=== PATIENT | male | born 1990 | race Caucasian/White ===

== ENCOUNTER 2018-08-10 22:01 | Inpatient (IN) ==
[2018-08-10 22:45] LABS: Baso # (Auto) 0.1 th/mm3 (0.0-0.2); Baso % (Auto) 0.7 % (0.0-2.0); Eos # (Auto) 0.3 th/mm3 (0.0-0.4); Eos % (Auto) 2.3 % (0.0-4.0); Hematocrit 38.9 % (39.0-51.0); Hemoglobin 13.9 gm/dL (13.0-17.0); Lymph # (Auto) 4.1 th/mm3 (1.0-4.8); Lymph % (Auto) 35.3 % (9.0-44.0); Mean Corpuscular HGB Conc 35.7 % (32.0-36.0); Mean Corpuscular Hemoglobin 31.7 pg (27.0-34.0); Mean Corpuscular Volume 88.9 fL (80.0-100.0); Mean Platelet Volume 8.7 fL (7.0-11.0); Mono % (Auto) 8.6 % (0.0-8.0); Neut # (Auto) 6.2 th/mm3 (1.8-7.7); Neut % (Auto) 53.1 % (16.0-70.0); Platelet Count 279 th/mm3 (150-450); Red Blood Count 4.38 mil/mm3 (4.50-5.90); White Blood Count 11.7 th/mm3 (4.0-11.0)
[2018-08-10 23:06] LABS: Alanine Aminotransferase 23 U/L (12-78); Albumin 4.3 g/dL (3.4-5.0); Anion Gap 9 meq/L (5-15); Aspartate Aminotransferase 14 U/L (15-37); Blood Urea Nitrogen 16 mg/dL (7-18); Calcium 9.4 mg/dL (8.5-10.1); Carbon Dioxide 23.2 meq/L (21.0-32.0); Chloride 110 meq/L (98-107); Glomerular Filtration Rate Greater Than 89 mL/min (>89); Glucose,Random 82 mg/dL (74-106); Potassium 3.5 meq/L (3.5-5.1); Sodium 142 meq/L (136-145)
[2018-08-10 23:09] LABS: Alkaline Phosphatase 91 U/L (45-117); Total Protein 7.7 g/dL (6.4-8.2)
[2018-08-10 23:14] LABS: Alcohol 5 mg/dL (0-5)
[2018-08-11] MEDS ORDERED: Gabapentin 100 MG Capsule PO ONE (03:39)
[2018-08-11] MEDS ORDERED: Gabapentin 400 MG Capsule PO ONE (03:45)
--- NOTE | 2018-08-11 03:45 | ED ---
HPI General Chief Complaint: Psychiatric Symptoms Stated Complaint: Pysch Eval/VCSO Time Seen by Provider: 08/11/18 03:39 Source: patient Mode of arrival: ambulatory Limitations: no limitations History of Present Illness HPI Narrative: 28-year-old white male presents emergency department under Michelle act by PD. Patient allegedly had gotten aggressive at home. Patient has a history of Fahrs syndrome. He is becoming more aggressive and paranoid at home. He presents for evaluation. He denies any recent illness. He denies any suicidal or homicidal ideation. No toxic ingestions. He does drink alcohol on occasion is smoke marijuana. He denies tobacco. Related Data Home Medications Medication Instructions Recorded Confirmed escitalopram oxalate [Lexapro] 10 mg PO BID 08/10/18 08/11/18 gabapentin 800 mg PO HS 08/10/18 08/11/18 montelukast [Singulair] 10 mg PO DAILY 08/10/18 08/11/18 Allergies Allergy/AdvReac Type Severity Reaction Status Date / Time adhesive tape Allergy Rash Verified 08/10/18 22:10 Sulfa (Sulfonamide Allergy Hives Verified 08/10/18 22:10 Antibiotics) Review of Systems ROS: all other systems reviewed are negative [facility] Medical History Medical History Anxiety (Acute) Fahr's disease (Acute) Social History Social History Substance History: Active Abuse Smoking Status: Never smoker How Often Do You Have a Drink Containing Alcohol: Never Recent Travel in [facility] within the Last 8 Weeks: No Recent Out of Country Travel within the Last 8 Weeks: No Substance Abuse Detail Marijuana: Substance Use Status: Active Immunization History Tetanus Immunization: <5 Years Exam Narrative Exam Narrative: GENERAL: Well-nourished, well-developed patient. SKIN: Warm and dry. HEAD: Normocephalic and atraumatic. EYES: No scleral icterus. No injection or drainage. ENT: No nasal drainage noted. Mucous membranes pink. Airway patent. NECK: Supple, trachea midline. Moves head freely without obvious discomfort. CARDIOVASCULAR: Regular rate and rhythm without murmurs, gallops, or rubs. RESPIRATORY: Breath sounds equal bilaterally. No accessory muscle use. GASTROINTESTINAL: Abdomen soft, non-tender, nondistended. EXTREMITIES: No cyanosis or edema. BACK: Nontender without obvious deformity. No CVA tenderness. NEURO: Patient is alert and oriented. no sensorimotor deficits. Nonfocal. Normal speech. PSYCH: No delusions. No auditory or visual hallucinations. Course Initial Documented Vital Signs Temperature 98 F 08/10/18 22:13 Pulse Rate 71 08/10/18 22:13 Respiratory Rate 16 08/10/18 22:13 Blood Pressure 156/75 H 08/10/18 22:13 Pulse Oximetry 100 08/10/18 22:13 Last Documented Vital Signs Temperature 98 F 08/10/18 22:13 Pulse Rate 71 08/10/18 22:13 Respiratory Rate 16 08/10/18 22:13 Blood Pressure 156/75 H 08/10/18 22:13 Pulse Oximetry 100 08/10/18 22:13 Medical Decision Making MDM Narrative Medical decision making narrative: Routine laboratory testing for medical clearance. Patient is given his gabapentin 800 mg at night and additional 50 mg of Benadryl p.o. Medical Screen Exam Complete: Yes Emergency Medical Condition: Yes Differential Diagnosis Differential Diagnosis: MDM: High Differential diagnoses: Schizophrenia, schizoaffective disorder, bipolar, anxiety, depression, adjustment reaction, mood disorder NOS, ODD, depressive disorder NOS, dementia, dementia with agitation, psychosis NOS, substance induced mood disorder, DMDD, Asperger syndrome, infection,electrolyte abnormality, malingering. Mental health screening discussed with the patient. Psychiatric screen ordered. Lab Data Result diagrams: 08/10/18 22:12 08/10/18 22:12 Lab Results 08/10/18 08/10/18 08/10/18 Range/Units 00:00 22:12 22:12 WBC 11.7 H (4.0-11.0) th/mm3 RBC 4.38 L (4.50-5.90) mil/mm3 Hgb 13.9 (13.0-17.0) gm/dL Hct 38.9 L (39.0-51.0) % MCV 88.9 (80.0-100.0) fL MCH 31.7 (27.0-34.0) pg MCHC 35.7 (32.0-36.0) % RDW 13.0 (11.6-17.2) % Plt Count 279 (150-450) th/mm3 MPV 8.7 (7.0-11.0) fL Neut % (Auto) 53.1 (16.0-70.0) % Lymph % (Auto) 35.3 (9.0-44.0) % [place] % (Auto) 8.6 H (0.0-8.0) % Eos % (Auto) 2.3 (0.0-4.0) % Baso % (Auto) 0.7 (0.0-2.0) % Neut # (Auto) 6.2 (1.8-7.7) th/mm3 Lymph # (Auto) 4.1 (1.0-4.8) th/mm3 [place] # (Auto) 1.0 H (0.0-0.9) th/mm3 Eos # (Auto) 0.3 (0.0-0.4) th/mm3 Baso # (Auto) 0.1 (0.0-0.2) th/mm3 WBC Differential . Differential Comment Auto diff final Sodium 142 (136-145) meq/L Potassium 3.5 (3.5-5.1) meq/L Chloride 110 H (98-107) meq/L Carbon Dioxide 23.2 (21.0-32.0) meq/L Anion Gap 9 (5-15) meq/L BUN 16 (7-18) mg/dL Creatinine 0.96 (0.60-1.30) mg/dL Estimated GFR Greater than 89 (>89) mL/min Random Glucose 82 (74-106) mg/dL Calcium 9.4 (8.5-10.1) mg/dL Total Bilirubin 0.3 (0.2-1.0) mg/dL AST 14 L (15-37) U/L ALT 23 (12-78) U/L Alkaline Phosphatase 91 (45-117) U/L Total Protein 7.7 (6.4-8.2) g/dL Albumin 4.3 (3.4-5.0) g/dL Urine Opiates Screen Neg (Neg) Ur Barbiturates Screen Neg (Neg) Ur Amphetamines Screen Neg (Neg) U Benzodiazepines Scrn Neg (Neg) Urine Cocaine Screen Neg (Neg) U Cannabinoids Screen Pos H (Neg) Serum Alcohol 5 (0-5) mg/dL Discharge Plan Discharge Disposition Patient Disposition: 30 Still Patient Discharge Condition Condition: Stable Physicians Team ED Provider: Mirna Ed,[facility] Midlevel Provider: Wicho Nye Primary Care Provider: Primary Care Michelle Marques Rxs /Orders / Referrals /Forms Prescriptions: No Action gabapentin 300 mg Capsule 800 mg PO HS RF: 0 montelukast [Singulair] 10 mg Tablet 10 mg PO DAILY RF: 0 escitalopram oxalate [Lexapro] 20 mg Tablet 10 mg PO BID RF: 0 Status ED Status: With LEONOR
[2018-08-11] MEDS ORDERED: Naproxen 500 MG Tablet PO ONE (11:42)
[2018-08-11] MEDS ORDERED: Aluminum/Magnesium/Simethacone Susp 30 ML UDC PO PRN (14:14)
--- NOTE | 2018-08-11 14:59 | P.CONPSY ---
Provisional Diagnosis Admission Date: August 10, 2018 22:01 [place] I.: Psychosis NOS Cannabis Abuse [place] III.: Fahr's Disease History of Present Illness Service: ED Consult date: 08/11/18 Reason for Consult: Miguel Angel Willams Primary Care Provider: No Primary Care Physician Chief Complaint: "I have episodes of rage" History of Present Illness: The patient is a 28 yo male who was brought to the [facility] ED under BA by ZOFIA, who were reportedly called to the home by the [facility] crisis [facility] because of worsening paranoia and aggressive behavior. According to the patient, he was first diagnosed with Fahr's disease ~ 2 years ago and he believes it is the cause of his "rage episodes" that have worsened over the past year, as well as worsening anxiety and paranoia over the past 2 months. He denies having insight into why he had his most recent rage episode, but he does c/o "a lot of stress and I don' t get enough time with my [facility] counselor to talk about it." The patient discussed stressors from being diagnosed with a progressive disease "that most doctors don't even recognize" and losing his independence due to the effects on his cognitive function. He also admits to severe grief from losing his girlfriend suddenly to cardiac arrest in 2017. He reports that he has been living with his parents since his GF and he sometimes gets irritated with them but overall is appreciative of their support and he deferred any discussion about medication changes to his mother, Tomasa Pino . Ms. Pino was contacted for collateral information, and she corroborates his history. She further explained that the paranoia and aggression has been worsening over the past 2 months and she is concerned with his safety and the families safety if he is returned home today without further psychiatric stabilization. She reports that his outpatient [facility] psychiatrist, Dr. Au, had previously suggested Seroquel as an adjunctive treatment of his depression, anxiety and paranoia but they had chosen an increase of the Lexapro first, out of concern for EPS, but she is now supportive of a trial. Risks, benefits, side-effects and alternatives were discussed with the patient in the ED and he agreed to start of low dose Seroquel. Past psychiatric history: Past Diagnoses: Anxiety, Depression Hospitalizations: None Suicidal behavior: The patient denies any past suicide attempts or behaviors and this was corroborated by his mother. Past psychotropic medication trials: Lexapro and gabapentin are the first psychotropics that the patient has been tried on. Outpatient MH treatment: Patient is followed by the [place] outpatient clinic in [facility], Dr. Cristobal Au is his psychiatrist. Substance Use Treatment: None reported Abuse/assault history: None reported Family psychiatric history: Patient reports that both of his parents are recovering alcoholics who have maintained a 30+ year history of sobriety. He denies any history of suicides in his family. Psychosocial history: Patient was born and raised in the [place]. He graduated high school on time from the [employer]. He attended 2 years of college but did not earn a degree before joining the [employer] in 2013. The patient reports that he is medically and placed on temporary senior care status from the [employer] in 2017 due to the diagnosis of Fahrs disease. Patient reports recent grief and loss from losing his girlfriend to a sudden heart attack in 2017. She denies any legal history. 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 Patient currently lives with his parents in [place]. Review of Systems Constitutional: Reports anorexia, Reports weight loss Eyes: Denies change in vision, Denies double vision Ears, Nose, Mouth, and Throat: Reports nasal congestion Cardiovascular: Reports fast heart rate, Denies chest pain Comments: patient was treated in past with ablation Respiratory: Denies chest congestion, Denies shortness of breath Gastrointestinal: Denies abdominal pain, Denies change in bowel habits Musculoskeletal: Denies body aches Neurologic: Reports memory loss, Reports restless legs, Reports tremor(s) Psychiatric: Reports anxiety, Reports change in appetite, Reports depression, Reports difficulty concentrating, Reports irritability, Reports memory loss, Reports mood swings, Reports paranoia [facility] - History History Provided By: Patient, Family Member - Medical History Medical History: Medical History (Last Reviewed 08/11/18 @ 03:44 by JESSENIA Sal) Anxiety Fahr's disease - Tobacco History Smoking Status: Never smoker - Alcohol History How Often Do You Have a Drink Containing Alcohol: Monthly or less - Substance Use History Substance History: Active Abuse - Substance Use Type Marijuana Status: Early Remission Route Used: Inhalation Frequency: patient used daily up until 2 months ago when he quit due to paranoia Last Used: 5 days ago Reason for Use: Calm Down - Travel History Recent Travel in the [place] Within the Last 8 Weeks: No Recent Travel Out of the Country Within the Last 8 Weeks: No - Immunization History Tetanus Immunization: <5 Years Medications and Allergies Active Medications: Active Medications Acetaminophen (Tylenol) 650 mg PO Q4H PRN PRN Reason: Pain 1-5 or Temp >101F Al Hydrox/Mg Hydrox/Simethicone (Mag-Al Plus Susp Liq) 30 ml PO Q6H PRN PRN Reason: DYSPEPSIA Al Hydroxide/Mg Hydroxide (Milk Of Magnesia Liq) 30 ml PO Q12H PRN PRN Reason: Mild Constipation Escitalopram Oxalate (Lexapro) 10 mg PO BID SHIMA Fluticasone Propionate (Flonase Nasal [place]) 2 spray EACH NARE DAILY SHIMA Gabapentin (Neurontin) 800 mg PO HS SHIMA Hydroxyzine HCl (Atarax) 50 mg PO Q6H PRN PRN Reason: ANXIETY AND/OR INSOMNIA Lactulose (Lactulose Liq) 30 ml PO DAILY PRN PRN Reason: SEVERE CONSITIPATION Montelukast Sodium (Singulair) 10 mg PO DAILY SHIMA Quetiapine Fumarate (Seroquel) 25 mg PO BID SHIMA Sennosides (Senokot) 17.2 mg PO Q12H PRN PRN Reason: Moderate Constipation Ziprasidone (Geodon Inj) 10 mg IM BID PRN PRN Reason: AGITATION Allergies Allergy/AdvReac Type Severity Reaction Status Date / Time adhesive tape Allergy Rash Verified 08/10/18 22:10 Sulfa (Sulfonamide Allergy Hives Verified 08/10/18 22:10 Antibiotics) Home Medications Medication Instructions Recorded Confirmed Type escitalopram oxalate [Lexapro] 10 mg PO BID 08/10/18 08/11/18 History gabapentin 800 mg PO HS 08/10/18 08/11/18 History montelukast [Singulair] 10 mg PO DAILY 08/10/18 08/11/18 History fluticasone 2 spray INTRANASAL DAILY 08/11/18 08/11/18 History Exam Vital signs: Vital Signs 08/10/18 22:13 Temperature 98 F Pulse Rate 71 Respiratory Rate 16 Blood Pressure 156/75 H Pulse Oximetry 100 Intake & Output 08/10/18 08/11/18 08/11/18 18:59 06:59 18:59 Weight 68.039 kg Mental Status Examination Appearance: Disheveled Consciousness: Alert Orientation: x4 Motor Activity: Normal gait Speech: Unremarkable Language: Adequate Fund of Knowledge: Adequate Attention and Concentration: Adequate Memory: Immediate (intact), Remote (intact) Mood: Anxious, Irritable Affect: Appropriate, Irritable Thought Process & Associations: Logical, Goal directed, Loose associations Thought Content: Other (paranoia) Hallucination Type: None Delusion Type: Paranoid Suicidal Ideation: No Suicidal Plan: No Suicidal Intention: No Homicidal Ideation: No Homicidal Plan: No Homicidal Intention: No Insight: Fair Judgment: Impulsive Assessment and Plan - Assessment (1) Psychosis Code(s): F29 - Unspecified psychosis not due to a substance or known physiological condition Status: Acute (2) Anxiety disorder, unspecified Code(s): F41.9 - Anxiety disorder, unspecified Status: Acute (3) Cannabis abuse Code(s): F12.10 - Cannabis abuse, uncomplicated Status: Acute - Plan Plan: Estimated LOS: [5] days 1. Continue with admission to inpatient psychiatry at [facility]; involuntary/competent legal status. 2. Routine unit precautions. 3. Comfort medications ordered for as needed treatment of constipation, heartburn, diarrhea, and mild pain. 4. Hydroxyzine 50mg po q6H prn anxiety/insomnia. 5. Quetiapine 25mg BID for psychosis. 6. Home meds continued as listed above. Justification for Continued Inpatient Stay: The patient is a 28-year-old male with worsening symptoms of anxiety and paranoia over the last 2 months and associated with episodes of rage and aggression that have worsened and his parents currently feel threatened and unsafe for him to return to their home and would like to see him further stabilized psychiatrically. The patient had presented on a law enforcement Michelle act and this will be continued to allow for further observation and treatment on inpatient psychiatry. Discharge Planning: Patient will be referred back to [place] [facility] at discharge. Request Healthcare Surrogate/Guardian Advocate?: No
--- NOTE | 2018-08-11 15:32 | P.CONIM ---
History of Present Illness Consult date: 08/11/18 Reason for Consult: Evaluation for Fahr's disease Primary Care Provider: No Primary Care Physician History of Present Illness: 28-year-old white male with a history of Fahr's disease, anxiety was brought to the emergency room under a Michelle act and admitted to inpatient psychiatric unit for worsening paranoia over the past few weeks and admitted for acute psychosis. Patient states that he was diagnosed with Fahr's disease up in [place], [place] 2 years ago due to early signs of arm tingling, some decrease in his cognition function and memory. He reports he has not been sleeping well during the past few weeks and has had increased anxiety and admitted to using recent marijuana. He states that he does not use marijuana on a daily basis. He reports he does worry about his future with symptoms worsening for Fahr's disease. He currently takes Neurontin which seems to help his symptoms. He does not feel that his symptoms has worsened over the past 2 years. He reports he continues to be able to independently ambulate with no difficulty. He denies any type of focalized weakness or numbness or any associated headaches. He has not had any speech deficits. He actively denies any suicidal ideations. He reports some paranoid thoughts about unknown people coming into harm him. He cannot specifically tell me the reason he feels this way. Review of Systems Constitutional: Reports as per HPI, Denies fatigue and Denies headache(s) Eyes: Denies blurry vision, Denies change in vision and Denies eye pain Ears, Nose, Mouth, and Throat: Denies abnormal hearing, Denies headache(s), Denies mouth pain, Denies nasal congestion, Denies neck pain and Denies sore throat Cardiovascular: Denies chest pain, Denies pedal edema, Denies palpitations and Denies dyspnea Respiratory: Denies cough and Denies dyspnea Gastrointestinal: Denies abdominal pain, Denies constipation, Denies loose stools, Denies nausea and Denies vomiting Musculoskeletal: Denies back pain, Denies myalgias, Denies arthralgias, Denies neck pain and Denies numbness Skin/Breast: Denies new lesions and Denies rash Neurologic: Denies abnormal hearing, Denies abnormal speech, Denies abnormal gait, Denies frequent falls, Denies headache(s), Denies lack of coordination, Denies focal weakness, Reports memory loss, Reports numbness and Reports tingling (Right hand tingling) Psychiatric: Reports abnormal sleep pattern, Reports anxiety, Denies change in appetite, Denies depression, Denies hopelessness, Denies memory loss, Reports paranoia, Denies homicidal ideation and Denies suicidal ideation Endocrine: Denies cold intolerance, Denies heat intolerance and Denies palpitations Hematologic/Lymphatic: Denies easy bleeding and Denies easy bruising [facility] Medical History Medical History Allergic rhinitis (Chronic) Anxiety (Chronic) Fahr's disease (Chronic) Surgical History Surgical History History of adenoidectomy (Chronic) History of tympanostomy tube placement (Chronic) Family History Family History Mother Diabetes mellitus Social History Social History Substance History: Active Abuse Smoking Status: Never smoker How Often Do You Have a Drink Containing Alcohol: Monthly or less Recent Travel in [facility] within the Last 8 Weeks: No Recent Out of Country Travel within the Last 8 Weeks: No Substance Abuse Detail Marijuana: Substance Use Status: Early Remission Route Used Substance Abuse: Inhalation Substance Frequency: patient used daily up until 2 months ago when he quit due to paranoia Last Used: 5 days ago Reason for Use: Calm Down Immunization History Tetanus Immunization: <5 Years Medications and Allergies Allergies Allergy/AdvReac Type Severity Reaction Status Date / Time adhesive tape Allergy Rash Verified 08/10/18 22:10 Sulfa (Sulfonamide Allergy Hives Verified 08/10/18 22:10 Antibiotics) Home Medications Medication Instructions Recorded Confirmed Type escitalopram oxalate [Lexapro] 10 mg PO BID 08/10/18 08/11/18 History gabapentin 800 mg PO HS 08/10/18 08/11/18 History montelukast [Singulair] 10 mg PO DAILY 08/10/18 08/11/18 History fluticasone 2 spray INTRANASAL DAILY 08/11/18 08/11/18 History Active Medications: Active Medications Acetaminophen (Tylenol) 650 mg PO Q4H PRN PRN Reason: Pain 1-5 or Temp >101F Al Hydrox/Mg Hydrox/Simethicone (Mag-Al Plus Susp Liq) 30 ml PO Q6H PRN PRN Reason: DYSPEPSIA Al Hydroxide/Mg Hydroxide (Milk Of Magnesia Liq) 30 ml PO Q12H PRN PRN Reason: Mild Constipation Escitalopram Oxalate (Lexapro) 10 mg PO BID SHIMA Fluticasone Propionate (Flonase Nasal [place]) 2 spray EACH NARE DAILY SHIMA Gabapentin (Neurontin) 800 mg PO HS SHIMA Hydroxyzine HCl (Atarax) 50 mg PO Q6H PRN PRN Reason: ANXIETY AND/OR INSOMNIA Lactulose (Lactulose Liq) 30 ml PO DAILY PRN PRN Reason: SEVERE CONSITIPATION Montelukast Sodium (Singulair) 10 mg PO DAILY SHIMA Quetiapine Fumarate (Seroquel) 25 mg PO BID SHIMA Sennosides (Senokot) 17.2 mg PO Q12H PRN PRN Reason: Moderate Constipation Ziprasidone (Geodon Inj) 10 mg IM BID PRN PRN Reason: AGITATION Physical Exam Vital signs: Last Vital Signs Temp 98 F 08/10/18 22:13 Pulse 71 08/10/18 22:13 Resp 16 08/10/18 22:13 BP 156/75 H 08/10/18 22:13 Pulse Ox 100 08/10/18 22:13 Intake & Output 08/09/18 08/10/18 08/11/18 08/12/18 06:59 06:59 06:59 06:59 Weight 68.039 kg Narrative: GENERAL: Well-nourished well-developed white male in no acute distress SKIN: Warm and dry. HEAD: Atraumatic. Normocephalic. EYES: Pupils equal and round. No scleral icterus. No injection or drainage. ENT: No nasal bleeding or discharge. Mucous membranes pink and moist. NECK: Trachea midline. No JVD. CARDIOVASCULAR: Regular rate and rhythm. RESPIRATORY: No accessory muscle use. Clear to auscultation. Breath sounds equal bilaterally. GASTROINTESTINAL: Abdomen soft, non-tender, nondistended. Hepatic and splenic margins not palpable. Normoactive bowel sounds MUSCULOSKELETAL: Extremities without clubbing, cyanosis, or edema. No obvious deformities. NEUROLOGICAL: Awake and alert to person place and time. No obvious cranial nerve deficits. Motor grossly within normal limits. Five out of 5 muscle strength in the arms and legs. Normal speech. Normal gait PSYCHIATRIC: Showed anxiety and paranoia during examination; insight and judgment normal. Results Labs CBC & Chem 7: 08/10/18 22:12 08/10/18 22:12 Assessment and Plan (1) Psychosis: Code(s): F29 - Unspecified psychosis not due to a substance or known physiological condition Status: Acute (2) Anxiety disorder, unspecified: Code(s): F41.9 - Anxiety disorder, unspecified Status: Acute (3) Cannabis abuse: Code(s): F12.10 - Cannabis abuse, uncomplicated Status: Acute Plan 28-year-old white male presents emergency room under a Michelle act admitted for acute psychosis with increased paranoia Acute psychosis with increased paranoia, per psychiatry starting Seroquel. History Fahr's diseaseI do not feel the Fahr's disease is part of the etiology for his acute psychosis. He does have normal adjustment feelings of anxiety about future progression of his Fahr's disease. His symptoms seems to be currently stable. I do not see any significant signs of ataxia, Chorea, or cognitive impairment on exam Continue with home gabapentin. History of allergic rhinitiscontinue with home Singulair and Flonase Marijuana usecessation counseling performed. Thank you for this consultation _ (1) Psychosis Qualifiers: Psychosis type: Schizoaffective disorder type: Schizophrenia type: (2) Anxiety disorder, unspecified Qualifiers: Anxiety disorder type: Phobia type:
[2018-08-11] MEDS: QUEtiapine 25 MG Tablet PO SCH (20:42)
[2018-08-11] MEDS: Gabapentin 400 MG Capsule PO SCH (20:43)
[2018-08-11] MEDS ORDERED: Gabapentin 400 MG Capsule PO SCH (21:00)
[2018-08-11] MEDS ORDERED: Escitalopram 10 MG Tablet PO SCH (21:00)
--- NOTE | 2018-08-12 08:13 | P.HPPSY ---
Provisional Diagnosis Admission Date: August 11, 2018 14:25 Lily I.: Psychosis NOS Cannabis Abuse Lily III.: Fahr's Disease Competence Certification of Person's Competence To Provide Express and Informed Consent I have personally examined Brice Pino, a person being served at [facility] on, August 12, 2018 0806. Express and informed consent means consent voluntarily given in writing, by a competent person, after sufficient explanation and disclosure of the subject matter involved to enable the person to make a knowing and willful decision without any element of force, fraud, deceit, duress, or other form of constraint or coercion. This person is 18 years of age or older, is not now known to be incompetent to consent to treatment with a guardian advocate, and does not have a health care surrogate or proxy currently making medical treatment decisions. I have found this person to be one of the following: [] Competent to provide express and informed consent, as defined above, for voluntary admission to this facility and is competent to provide express and informed consent for treatment. He/she has the consistent capacity to make well reasoned, willful, and knowing decisions concerning his or her medical or mental health treatment. The person fully and consistently understands the purpose of the admission for examination/placement and is fully capable of personally exercising all rights assured under [place] [] Incompetent to provide express and informed consent to voluntary admission, and this is incompetent to provide express and informed consent to treatment. The person must be transferred to involuntary status and a petition for a guardian advocate filed with the Circuit Court. [xxx] Refusing to provide express and informed consent to voluntary admission but is competent to provide express and informed consent for treatment. The person must be discharged or transferred to involuntary status. Form shall be completed within 24 hours of a person's arrival at the receiving facility and filed in the clinical record of each person: 1. Admitted on a voluntary basis 2. Permitted to provide express and informed consent to his/her own treatment 3. Allowed to transfer from involuntary to voluntary status 4. Prior to permitting a person to consent to his or her own treatment after having been previously found incompetent to consent to treatment. History of Present Illness Capacity: Has capacity History of Present Illness: Patient is a 20-year-old man, single, domiciled with parents, , with a past psychiatric history of depression and anxiety, no previous psychiatric admissions, no previous suicide attempt or self-injurious behavior, no significant substance use history, with a past medical significant for Fahr disease, brought in to the ED under Michelle act by police due to aggressive behavior at home and paranoid ideation which patient was admitted to the inpatient psychiatry for further evaluation and management. Recent psychiatric consultation by Dr. Hernandez: The patient is a 28 yo male who was [place] [facility] [place] BA by ZOFIA, who were reportedly [facility] the [facility] because of worsening paranoia and aggressive behavior. According to the patient, he was first diagnosed with Fahr's disease ~ 2 years ago and he believes it is the cause of his "rage episodes" that have worsened over the past year, as well as worsening anxiety and paranoia over the past 2 months. He denies having insight into why he had his most recent rage episode, but he does c/o "a lot of stress and I don' t get enough time with my [facility] counselor to talk about it." The patient discussed stressors from being diagnosed with a progressive disease "that most doctors don't even recognize" and losing his independence due to the effects on his cognitive function. He also admits to severe grief from losing his girlfriend suddenly to cardiac arrest in 2017. He reports that he has been living with his parents since his GF and he sometimes gets irritated with them but overall is appreciative of their support and he deferred any discussion about medication changes to his mother, Tomasa Pino . Ms. Pino was contacted for collateral information, and she corroborates his history. She further explained that the paranoia and aggression has been worsening over the past 2 months and she is concerned with his safety and the families safety if he is returned home today without further psychiatric stabilization. She reports that his outpatient [facility] psychiatrist, Dr. Au, had previously suggested Seroquel as an adjunctive treatment of his depression, anxiety and paranoia but they had chosen an increase of the Lexapro first, out of concern for EPS, but she is now supportive of a trial. Risks, benefits, side-effects and alternatives were discussed with the patient in the ED and he agreed to start of low dose Seroquel. Past psychiatric history: Past Diagnoses: Anxiety, Depression Hospitalizations: None Suicidal behavior: The patient denies any past suicide attempts or behaviors and this was corroborated by his mother. Past psychotropic medication trials: Lexapro and gabapentin are the first psychotropics that the patient has been tried on. Outpatient MH treatment: Patient is followed by the [place] outpatient [place] in [facility], Dr. Cristobal Au is his psychiatrist. Substance Use Treatment: None reported Abuse/assault history: None reported Family psychiatric history: Patient reports that both of his parents are recovering alcoholics who have maintained a 30+ year history of sobriety. He denies any history of suicides in his family. Psychosocial history: Patient was born and raised in the [facility] [place]. He graduated high school on time from the [employer]. He attended 2 years of college but did not earn a degree before joining the [employer] in 2013. The patient reports that he is medically and placed on temporary mcc status from the [employer] in 2017 due to the diagnosis of Fahrs disease. Patient reports recent grief and loss from losing his girlfriend to a sudden heart attack in 2017. She denies any legal history. 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 Patient currently lives with his parents in [place]. Upon my evaluation today. Patient was found lying hospital bed noted to be guarded and suspicious of newspaper writer. Patient states that the medication (Seroquel ) "is too much". Patient states he is sleeping well, no difficulty with appetite, when mention about stress at home as per chart he states "I never said that". He mentions his mother having called the police "maybe I had an outburst" which he states he has once per week and when asked why this episode was different he was unable to elaborate. He describes recent outburst regarding a piece of paper which she "ripped up". Patient states his mood has been "good" although denies having paranoid ideation was paranoid of newspaper writer questioning whether ISA kay was mine. As per chart patient had called the [place] suicide Hotline and mental health social worker had the impression the patient was psychotic and not suicidal. Mother had stated as per chart that patient felt people are watching him that his parents were holding him back, has been volatile and paranoid and that still having stated that the government is after him and that someone had put Her in the water. - Inpatient Certification I certify that the inpatient services were ordered in accordance with Medicare regulations governing the order. This includes certification that hospital inpatient services are reasonable and necessary and in the case of services not specified as inpatient-only under 42 CFR 419.22(n), that they are appropriately provided as inpatient services in accordance to with the 2-midnight benchmark under 43 CFR 412.3(e) I certify that inpatient psychiatric hospital services are medically necessary. Evaluation and treatment and/or diagnostic testing are expected to improve the patient's condition. The patient needs on a daily basis, active treatment furnished directly by or requiring the supervision of inpatient psychiatric facility personnel. Estimated Total Length of Stay (Days): 5 Plans for Post Hospital Care: Not yet determined Review of Systems All other systems reviewed negative except as stated in [facility] - History History Provided By: Patient, Medical Record - Medical History Medical History: Medical History (Last Updated 08/11/18 @ 15:41 by Carrie Bang MD) Allergic rhinitis Anxiety Fahr's disease - Surgical History Surgical History: Surgical History (Last Updated 08/11/18 @ 15:43 by Carrie Bang MD) History of adenoidectomy History of tympanostomy tube placement - Family History Family History: Family History Mother Diabetes mellitus - Tobacco History Second Hand Smoke Exposure: No Smoking Status: Never smoker - Alcohol History How Often Do You Have a Drink Containing Alcohol: Monthly or less - Substance Use History Substance History: Active Abuse - Substance Use Type Marijuana Status: Active Route Used: Inhalation Frequency: patient used daily up until 2 months ago when he quit due to paranoia Last Used: 5 days ago Reason for Use: Calm Down - Travel History Recent Travel in the [place] Within the Last 8 Weeks: No Recent Travel Out of the Country Within the Last 8 Weeks: No - Immunization History Tetanus Immunization: <5 Years Hx Influenza Vaccine This Season: Yes Quality Measures - Psychiatric History Psychological trauma history: None Violence risk to others in the last 6 months: Elevated due to recent aggressive behavior at home Violence risk to self in the last 6 months: Low - Substance Abuse History Drug or alcohol use in the past 12 months: None - Patient Strengths Patient's strengths (minimum of 2): Verbal and communicative Medications and Allergies Active Medications: Active Medications Acetaminophen (Tylenol) 650 mg PO Q4H PRN PRN Reason: Pain 1-5 or Temp >101F Al Hydrox/Mg Hydrox/Simethicone (Mag-Al Plus Susp Liq) 30 ml PO Q6H PRN PRN Reason: DYSPEPSIA Al Hydroxide/Mg Hydroxide (Milk Of Magnesia Liq) 30 ml PO Q12H PRN PRN Reason: Mild Constipation Escitalopram Oxalate (Lexapro) 10 mg PO BID [facility] Last Admin: 08/11/18 20:42 Dose: 10 mg Fluticasone Propionate (Flonase Nasal Sabina) 2 spray EACH NARE DAILY [facility] Gabapentin (Neurontin) 800 mg PO HS [facility] Last Admin: 08/11/18 20:43 Dose: 800 mg Hydroxyzine HCl (Atarax) 50 mg PO Q6H PRN PRN Reason: ANXIETY AND/OR INSOMNIA Lactulose (Lactulose Liq) 30 ml PO DAILY PRN PRN Reason: SEVERE CONSITIPATION Montelukast Sodium (Singulair) 10 mg PO [facility] Quetiapine Fumarate (Seroquel) 25 mg PO BID [facility] Last Admin: 08/11/18 20:42 Dose: 25 mg Sennosides (Senokot) 17.2 mg PO Q12H PRN PRN Reason: Moderate Constipation Ziprasidone (Geodon Inj) 10 mg IM BID PRN PRN Reason: AGITATION Allergies Allergy/AdvReac Type Severity Reaction Status Date / Time adhesive tape Allergy Rash Verified 08/10/18 22:10 Sulfa (Sulfonamide Allergy Hives Verified 08/10/18 22:10 Antibiotics) Home Medications Medication Instructions Recorded Confirmed Type escitalopram oxalate [Lexapro] 10 mg PO BID 08/10/18 08/11/18 History gabapentin 800 mg PO HS 08/10/18 08/11/18 History montelukast [Singulair] 10 mg PO DAILY 08/10/18 08/11/18 History fluticasone 2 spray INTRANASAL DAILY 08/11/18 08/11/18 History Results - Labs CBC & Chem 7: 08/10/18 22:12 08/10/18 22:12 Exam Vital signs: Vital Signs 08/11/18 18:00 08/12/18 05:17 Temperature 98.1 F 97.9 F Pulse Rate 80 69 Respiratory Rate 19 18 Blood Pressure 161/75 H 124/68 Pulse Oximetry 100 98 Intake & Output 08/11/18 08/12/18 08/12/18 18:59 06:59 18:59 Weight 65.45 kg Other: Weight On Admission 65.45 kg Narrative: Patient not noted to be in acute distress, no gross motor abnormalities, no signs of tremor or EPS, no psychomotor agitation or retardation. - Constitutional no acute distress, cooperative Mental Status Examination Appearance: Disheveled, Other (In hospital [facility]) Consciousness: Alert Orientation: x4 Motor Activity: Normal gait Speech: Unremarkable Language: Adequate Fund of Knowledge: Adequate Attention and Concentration: Adequate Memory: Immediate (intact), Remote (intact) Mood: Anxious, Irritable Affect: Irritable, Other (Guarded and suspicious) Thought Process & Associations: Logical, Loose associations, Disorganized (At times) Thought Content: Other (paranoia) Hallucination Type: None Delusion Type: Paranoid Suicidal Ideation: No Suicidal Plan: No Suicidal Intention: No Homicidal Ideation: No Homicidal Plan: No Homicidal Intention: No Insight: Fair Judgment: Impulsive Assessment and Plan - Assessment (1) Psychosis Code(s): F29 - Unspecified psychosis not due to a substance or known physiological condition Status: Acute (2) Anxiety disorder, unspecified Code(s): F41.9 - Anxiety disorder, unspecified Status: Acute (3) Cannabis abuse Code(s): F12.10 - Cannabis abuse, uncomplicated Status: Acute - Plan Plan: Patient is a 28-year-old man who carries a diagnosis of Urma's disease , with a psychiatric history of depression and anxiety but no previous psychiatric admissions, brought in under Michelle act due to aggressive behavior at home and increasing paranoia which patient requires at this time inpatient psychiatric level of care for stabilization for safety. Patient will continue quetiapine 25 mg p.o. twice daily with upper titration as needed, gabapentin 800 mg p.o. at bedtime and Lexapro 10 mg p.o. twice daily. Petition for involuntary hospitalization started, second opinion requested. Patient has capacity to consent for treatment. We will continue to monitor mood and behavior. Social work intervention for psychosocial assessment. Discharge planning in progress. Justification for Continued Inpatient Stay: At risk of further decompensation at lower level care. Request Healthcare Surrogate/Guardian Advocate?: No
[2018-08-12] MEDS ORDERED: Montelukast 10 MG Tablet PO SCH (09:00)
[2018-08-12] MEDS: QUEtiapine 25 MG Tablet PO SCH ×2 (09:15→21:06)
[2018-08-12] MEDS: Acetaminophen 325 MG Tablet PO PRN (09:22)
[2018-08-12 11:07] LABS: Calcium 9.2 mg/dL (8.5-10.1); Carbon Dioxide 30.2 meq/L (21.0-32.0); Potassium 4.1 meq/L (3.5-5.1)
[2018-08-12 11:10] LABS: Chol/HDL Ratio 2.33 Ratio; HDL Cholesterol 70.3 mg/dL (40.0-60.0)
--- NOTE | 2018-08-12 12:48 | ECG ---
Date Performed: 08/11/2018 Time Performed: 20:57:59 PTAGE: 28 years EKG: Sinus rhythm NORMAL ECG NO PREVIOUS TRACING DOCTOR: Nick Zuniga Interpretating Date/Time 08/12/2018 12:42:57
[2018-08-12] MEDS ORDERED: Naproxen 250 MG Tablet PO ONE (13:47)
--- NOTE | 2018-08-12 14:47 | P.PNIM ---
Subjective Interval history: Follow-up visit Fahr's disease, anxiety, allergic rhinitis. Patient seen and examined today. Appears to be anxious, very defensive with all his answers to questions. Denies pain and discomfort. Denies SOB/ dyspnea. Denies chest pain , palpitations, headaches, dizziness. Denies fevers, chills, n/v/d. Denies any motor problems. Denies any hallucinations. Physical Exam Vital signs: Vital Signs 08/11/18 18:00 08/12/18 05:17 Temperature 98.1 F 97.9 F Pulse Rate 80 69 Respiratory Rate 19 18 Blood Pressure 161/75 H 124/68 Pulse Oximetry 100 98 Intake & Output 08/11/18 08/12/18 08/12/18 18:59 06:59 18:59 Weight 65.45 kg Other: Weight On Admission 65.45 kg Narrative: GENERAL: This is a well-nourished, well-developed young male, in no apparent distress. SKIN: Warm and dry. HEENT: Normocephalic. Pupils equal round and reactive. Nose without bleeding. Airway patent. NECK: Trachea midline. CARDIOVASCULAR: Regular rate and rhythm without murmurs, gallops, or rubs. RESPIRATORY: Clear to auscultation. Breath sounds equal bilaterally. No wheezes , rales, or rhonchi. GASTROINTESTINAL: Abdomen soft, non-tender, nondistended. Bowel Sounds normoactive x4. MUSCULOSKELETAL: Extremities without clubbing, cyanosis, or edema. NEUROLOGICAL: Awake and alert. No focal neuro deficit. Moves all extremities. No gross motor abnormalities noted, no signs of tremors or EPS, no psychomotor agitation or retardation. Fast speech. Results - Labs CBC & Chem 7: 08/10/18 22:12 08/12/18 08:57 Laboratory Results - last 24 hr 08/12/18 08/12/18 08:57 08:57 Sodium 142 Potassium 4.1 Chloride 109 H Carbon Dioxide 30.2 Anion Gap 3 L BUN 16 Creatinine 1.14 Estimated GFR 76 L Random Glucose 78 Hemoglobin A1c 5.0 Calcium 9.2 Triglycerides 60 Cholesterol 164 LDL Cholesterol, Calc 82 HDL Cholesterol 70.3 H Cholesterol/HDL Ratio 2.33 Assessment and Plan - Assessment (1) Psychosis Code(s): F29 - Unspecified psychosis not due to a substance or known physiological condition Status: Acute (2) Anxiety disorder, unspecified Code(s): F41.9 - Anxiety disorder, unspecified Status: Acute (3) Cannabis abuse Code(s): F12.10 - Cannabis abuse, uncomplicated Status: Acute - Plan 28-year-old white male with a history of Fahr's disease, anxiety was brought to the emergency room under a Michelle act and admitted to inpatient psychiatric unit for worsening paranoia over the past few weeks and admitted for acute psychosis. Acute psychosis Anxiety -Managed by psychiatry team -Severely anxious that he was admitted to the unit. Anxious of diagnosis of Fahr's disease. History of Fahr's disease -No motor deficits noted. No ataxia, chorea, cognitive impairment. Suspect that this is not the etiology of his acute psychosis. -Patient is severely anxious of his diagnosis -Continue Neurontin. Follow-up with neurologist and outpatient Allergic rhinitis -Continue with Singulair and Flonase use Marijuana use -Patient states that the last use was last week. -States that he is able to wean off his himself from marijuana -Counselled on cessation. DVT prop ambulatory CODE STATUS: Full code Discussed with patient, nursing Stable from Hospitalist standpoint. We will sign off. Reconsult as needed. Thank you. Discharge Planning: DC disposition by primary team
--- NOTE | 2018-08-12 16:19 | P.CONPSY ---
Provisional Diagnosis Admission Date: August 11, 2018 14:25 [place] I.: Psychosis NOS Cannabis Abuse [place] III.: Fahr's Disease History of Present Illness Primary Care Provider: No Primary Care Physician Chief Complaint: "I have episodes of rage" History of Present Illness: Patient is a 20-year-old man, single, domiciled with parents, , with a past psychiatric history of depression and anxiety, no previous psychiatric admissions, no previous suicide attempt or self-injurious behavior, no significant substance use history, past medical significant for Fahr disease , brought in to the ED under Michelle act by police due to aggressive behavior at home and paranoid ideation which patient was admitted to the inpatient psychiatry for further evaluation and management. Recent psychiatric consultation by Dr. Hernandez: The patient is a 28 yo male who was brought to the [facility] ED under BA by ZOFIA, who were [facility] because of worsening paranoia and aggressive behavior. According to the patient, he was first diagnosed with Fahr's disease ~ 2 years ago and he believes it is the cause of his "rage episodes" that have worsened over the past year, as well as worsening anxiety and paranoia over the past 2 months. He denies having insight into why he had his most recent rage episode, but he does c/o "a lot of stress and I don' t get enough time with my [facility] counselor to talk about it." The patient discussed stressors from being diagnosed with a progressive disease "that most doctors don't even recognize" and losing his independence due to the effects on his cognitive function. He also admits to severe grief from losing his girlfriend suddenly to cardiac arrest in 2017. He reports that he has been living with his parents since his GF and he sometimes gets irritated with them but overall is appreciative of their support and he deferred any discussion about medication changes to his mother, Tomasa Pino [phone]. Ms. Pino was contacted for collateral information, and she corroborates his history. She further explained that the paranoia and aggression has been worsening over the past 2 months and she is concerned with his safety and the families safety if he is returned home today without further psychiatric stabilization. She reports that his outpatient [facility] psychiatrist, Dr. Au, had previously suggested Seroquel as an adjunctive treatment of his depression, anxiety and paranoia but they had chosen an increase of the Lexapro first, out of concern for EPS, but she is now supportive of a trial. Risks, benefits, side-effects and alternatives were discussed with the patient in the ED and he agreed to start of low dose Seroquel. The patient is a 20-year-old man, single, domiciled with his parents, he is a , 100% service-connected, psychiatric history of depression, anxiety, he denies previous psychiatric hospitalizations, denies previous attempts, he has history of cannabis use disorder, significant medical history of Fars disease, Michelle acted due to aggressive behavior. Consulted to me for second opinion. On my psychiatric evaluation patient is oppositional, irritable , stating that he does not need to be here. He denies depression, he denies anxiety, he denies suicidal and homicidal ideation at the moment. He is fully oriented x3 at the moment PMFSH - History History Provided By: Patient, Medical Record - Medical History Medical History: Medical History (Last Updated 08/11/18 @ 15:41 by Carrie Bang MD) Allergic rhinitis Anxiety Fahr's disease - Surgical History Surgical History: Surgical History (Last Updated 08/11/18 @ 15:43 by Carrie Bang MD) History of adenoidectomy History of tympanostomy tube placement - Family History Family History: Family History Mother Diabetes mellitus - Tobacco History Second Hand Smoke Exposure: No Smoking Status: Never smoker - Alcohol History How Often Do You Have a Drink Containing Alcohol: Monthly or less - Substance Use History Substance History: Active Abuse - Substance Use Type Marijuana Status: Active Route Used: Inhalation Frequency: patient used daily up until 2 months ago when he quit due to paranoia Last Used: 5 days ago Reason for Use: Calm Down - Travel History Recent Travel in the [place] Within the Last 8 Weeks: No Recent Travel Out of the Country Within the Last 8 Weeks: No - Immunization History Tetanus Immunization: <5 Years Hx Influenza Vaccine This Season: Yes Medications and Allergies Active Medications: Active Medications Acetaminophen (Tylenol) 650 mg PO Q4H PRN PRN Reason: Pain 1-5 or Temp >101F Last Admin: 08/12/18 09:22 Dose: 650 mg Al Hydrox/Mg Hydrox/Simethicone (Mag-Al Plus Susp Liq) 30 ml PO Q6H PRN PRN Reason: DYSPEPSIA Al Hydroxide/Mg Hydroxide (Milk Of Magnesia Liq) 30 ml PO Q12H PRN PRN Reason: Mild Constipation Escitalopram Oxalate (Lexapro) 10 mg PO BID [facility] Last Admin: 08/12/18 09:15 Dose: 10 mg Fluticasone Propionate (Flonase Nasal [place]) 2 spray EACH NARE DAILY [facility] Last Admin: 08/12/18 09:22 Dose: 2 spray Gabapentin (Neurontin) 800 mg PO HS [facility] Last Admin: 08/11/18 20:43 Dose: 800 mg Hydroxyzine HCl (Atarax) 50 mg PO Q6H PRN PRN Reason: ANXIETY AND/OR INSOMNIA Lactulose (Lactulose Liq) 30 ml PO DAILY PRN PRN Reason: SEVERE CONSITIPATION Montelukast Sodium (Singulair) 10 mg PO [facility] Quetiapine Fumarate (Seroquel) 25 mg PO BID [facility] Last Admin: 08/12/18 09:15 Dose: 25 mg Sennosides (Senokot) 17.2 mg PO Q12H PRN PRN Reason: Moderate Constipation Ziprasidone (Geodon Inj) 10 mg IM BID PRN PRN Reason: AGITATION Allergies Allergy/AdvReac Type Severity Reaction Status Date / Time adhesive tape Allergy Rash Verified 08/10/18 22:10 Sulfa (Sulfonamide Allergy Hives Verified 08/10/18 22:10 Antibiotics) Home Medications Medication Instructions Recorded Confirmed Type escitalopram oxalate [Lexapro] 10 mg PO BID 08/10/18 08/11/18 History gabapentin 800 mg PO HS 08/10/18 08/11/18 History montelukast [Singulair] 10 mg PO DAILY 08/10/18 08/11/18 History fluticasone 2 spray INTRANASAL DAILY 08/11/18 08/11/18 History Exam Vital signs: Vital Signs 08/11/18 18:00 08/12/18 05:17 Temperature 98.1 F 97.9 F Pulse Rate 80 69 Respiratory Rate 19 18 Blood Pressure 161/75 H 124/68 Pulse Oximetry 100 98 Intake & Output 08/11/18 08/12/18 08/12/18 18:59 06:59 18:59 Weight 65.45 kg Other: Weight On Admission 65.45 kg Mental Status Examination Appearance: Disheveled, Other (In [facility]) Consciousness: Alert Orientation: x4 Motor Activity: Normal gait Speech: Unremarkable Language: Adequate Fund of Knowledge: Adequate Attention and Concentration: Adequate Memory: Immediate (intact), Remote (intact) Mood: Anxious, Irritable Affect: Irritable, Other (Guarded and suspicious) Thought Process & Associations: Logical, Loose associations, Disorganized (At times) Thought Content: Other (paranoia) Hallucination Type: None Delusion Type: Paranoid Suicidal Ideation: No Suicidal Plan: No Suicidal Intention: No Homicidal Ideation: No Homicidal Plan: No Homicidal Intention: No Insight: Fair Judgment: Impulsive Assessment and Plan - Assessment (1) Psychosis Code(s): F29 - Unspecified psychosis not due to a substance or known physiological condition Status: Acute (2) Anxiety disorder, unspecified Code(s): F41.9 - Anxiety disorder, unspecified Status: Acute (3) Cannabis abuse Code(s): F12.10 - Cannabis abuse, uncomplicated Status: Acute - Plan Plan: I have seen and examined this patient, reviewed documentation, I agree and concur with Dr. Watts assessment and plan Justification for Continued Inpatient Stay: Continue admission per Request Healthcare Surrogate/Guardian Advocate?: No
[2018-08-12] MEDS: Montelukast 10 MG Tablet PO SCH (21:03)
[2018-08-12] MEDS: Gabapentin 400 MG Capsule PO SCH (21:08)
[2018-08-13] MEDS: QUEtiapine 25 MG Tablet PO SCH ×2 (09:19→20:37)
--- NOTE | 2018-08-13 18:08 | P.PNPSY ---
Subjective Remarks: Reviewed electronic medical records and discussed case with staff. Follow-up was conducted in the patient's room with VENUS Ornelas present. Patient has been compliant with medication and had no behaviors here although his nurse reports that his behavior is somewhat bizarre and paranoid. He reports that he is "doing okay" but is a little hesitant in his answer. He states that he slept okay and that his appetite's been good. He reports that he has difficulty in the morning getting going. He was paranoid about the increase of his medications and I explained to him that typically the doctor obtains consent for range and that the medication needs to be increased to target effects. He seemed okay with this answer. Mental Status Examination Appearance: Disheveled, Other (In hospital [facility]) Consciousness: Alert Orientation: x4 Motor Activity: Normal gait Speech: Unremarkable Language: Adequate Fund of Knowledge: Adequate Attention and Concentration: Adequate Memory: Immediate (intact), Remote (intact) Mood: Anxious, Irritable Affect: Irritable, Other (Guarded and suspicious) Thought Process & Associations: Logical, Loose associations, Disorganized (At times) Thought Content: Other (paranoia) Hallucination Type: None Delusion Type: Paranoid Suicidal Ideation: No Suicidal Plan: No Suicidal Intention: No Homicidal Ideation: No Homicidal Plan: No Homicidal Intention: No Insight: Fair Judgment: Impulsive Assessment and Plan - Assessment (1) Psychosis Code(s): F29 - Unspecified psychosis not due to a substance or known physiological condition Status: Acute - Plan Plan: Patient will be reevaluated by the attending psychiatrist. Continue with current treatment plan. Justification for Continued Inpatient Stay: Moving this patient to a less restrictive environment would likely result in decompensation. Request Healthcare Surrogate/Guardian Advocate?: No
[2018-08-13] MEDS: Gabapentin 400 MG Capsule PO SCH (20:37)
[2018-08-13] MEDS: Montelukast 10 MG Tablet PO SCH (20:37)
[2018-08-13] MEDS: Acetaminophen 325 MG Tablet PO PRN (20:38)
[2018-08-14] MEDS: QUEtiapine 25 MG Tablet PO SCH ×2 (09:05→20:13)
--- NOTE | 2018-08-14 14:21 | P.PNPSY ---
Subjective Remarks: Reviewed electronic record and discussed with nursing staff. Rounded with VENUS Seo. Patient is in his room. He is asking for motrin for generalized discomfort. He endorses that he was a [employer]. He also is experiences some episodes that could be described as "rage." Patient believes that the change in his behavior is due to Fahr's disease , which he was diagnosed with approximately one year ago. He feels that the current medications are helping. He is sleeping and eating well. Denies SI/HI. He continues to be guarded and appears paranoid. Review of Systems All other systems reviewed negative except as stated in HPI Mental Status Examination Appearance: Disheveled, Other (In hospital [facility]) Consciousness: Alert Orientation: x4 Motor Activity: Normal gait Speech: Unremarkable Language: Adequate Fund of Knowledge: Adequate Attention and Concentration: Adequate Memory: Immediate (intact), Remote (intact) Mood: Anxious, Irritable Affect: Irritable, Other (Guarded and suspicious) Thought Process & Associations: Logical, Loose associations, Disorganized (At times) Thought Content: Other (paranoia) Hallucination Type: None Delusion Type: Paranoid Suicidal Ideation: No Suicidal Plan: No Suicidal Intention: No Homicidal Ideation: No Homicidal Plan: No Homicidal Intention: No Insight: Fair Judgment: Impulsive Assessment and Plan - Assessment (1) Psychosis Code(s): F29 - Unspecified psychosis not due to a substance or known physiological condition Status: Acute (2) Anxiety disorder, unspecified Code(s): F41.9 - Anxiety disorder, unspecified Status: Acute - Plan Plan: Patient will be reevaluated by the attending psychiatrist. Continue with current treatment plan. Justification for Continued Inpatient Stay: Moving patient to a less restrictive environment may result in his decompensation. Request Healthcare Surrogate/Guardian Advocate?: No
[2018-08-14] MEDS: Ibuprofen 400 MG Tablet PO PRN (14:40)
[2018-08-14] MEDS: Gabapentin 400 MG Capsule PO SCH (20:13)
[2018-08-14] MEDS: Montelukast 10 MG Tablet PO SCH (20:13)
[2018-08-15 05:45] VITALS: BP 117/57; PULSE 55; RESP 18; TEMP 97.4; O2SAT 100
[2018-08-15] MEDS: QUEtiapine 25 MG Tablet PO SCH (08:56)
[2018-08-15] MEDS: Ibuprofen 400 MG Tablet PO PRN (09:13)
--- NOTE | 2018-08-15 14:13 | P.DSPSY ---
Psychiatry Discharge Summary Inpatient Psychiatric care?: Yes Advance Directives: No Mental Health Advance Directive: No Health Care Proxy: No - Admission Admission Date: August 11, 2018 14:25 - Admission Diagnosis (1) Psychosis Code(s): F29 - Unspecified psychosis not due to a substance or known physiological condition (2) Anxiety disorder, unspecified Code(s): F41.9 - Anxiety disorder, unspecified (3) Cannabis abuse Code(s): F12.10 - Cannabis abuse, uncomplicated Brief History: Patient is a 20-year-old man, single, domiciled with parents, , with a past psychiatric history of depression and anxiety, no previous psychiatric admissions, no previous suicide attempt or self-injurious behavior, no significant substance use history, with a past medical significant for Fahr disease, brought in to the ED under Michelle act by police due to aggressive behavior at home and paranoid ideation which patient was admitted to the inpatient psychiatry for further evaluation and management. Recent psychiatric consultation by Dr. Hernandez: The patient is a 28 yo male who was brought to the [facility] ED under BA by ZOFIA, who were reportedly called to the home by the [facility] crisis [facility] because of worsening paranoia and aggressive behavior. According to the patient, he was first diagnosed with Fahr's disease ~ 2 years ago and he believes it is the cause of his "rage episodes" that have worsened over the past year, as well as worsening anxiety and paranoia over the past 2 months. He denies having insight into why he had his most recent rage episode, but he does c/o "a lot of stress and I don' t get enough time with my [facility] counselor to talk about it." The patient discussed stressors from being diagnosed with a progressive disease "that most doctors don't even recognize" and losing his independence due to the effects on his cognitive function. He also admits to severe grief from losing his girlfriend suddenly to cardiac arrest in 2017. He reports that he has been living with his parents since his GF and he sometimes gets irritated with them but overall is appreciative of their support and he deferred any discussion about medication changes to his mother, Tomasa Pino . Ms. Pino was contacted for collateral information, and she corroborates his history. She further explained that the paranoia and aggression has been worsening over the past 2 months and she is concerned with his safety and the families safety if he is returned home today without further psychiatric stabilization. She reports that his outpatient [place] psychiatrist, Dr. Au, had previously suggested Seroquel as an adjunctive treatment of his depression, anxiety and paranoia but they had chosen an increase of the Lexapro first, out of concern for EPS, but she is now supportive of a trial. Risks, benefits, side-effects and alternatives were discussed with the patient in the ED and he agreed to start of low dose Seroquel. Past psychiatric history: Past Diagnoses: Anxiety, Depression Hospitalizations: None Suicidal behavior: The patient denies any past suicide attempts or behaviors and this was corroborated by his mother. Past psychotropic medication trials: Lexapro and gabapentin are the first psychotropics that the patient has been tried on. Outpatient MH treatment: Patient is followed by the [facility] outpatient [facility] in [facility], Dr. Cristobal Au is his psychiatrist. Substance Use Treatment: None reported Abuse/assault history: None reported Family psychiatric history: Patient reports that both of his parents are recovering alcoholics who have maintained a 30+ year history of sobriety. He denies any history of suicides in his family. Psychosocial history: Patient was born and raised in the [facility]. He graduated high school on time from the [employer]. He attended 2 years of college but did not earn a degree before joining the [employer] in 2013. The patient reports that he is medically and placed on temporary mcc status from the [employer] in 2017 due to the diagnosis of Fahrs disease. Patient reports recent grief and loss from losing his girlfriend to a sudden heart attack in 2017. She denies any legal history. 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 Patient currently lives with his parents in [place]. Upon my evaluation today. Patient was found lying hospital bed noted to be guarded and suspicious of hand sign writer. Patient states that the medication (Seroquel ) "is too much". Patient states he is sleeping well, no difficulty with appetite, when mention about stress at home as per chart he states "I never said that". He mentions his mother having called the police "maybe I had an outburst" which he states he has once per week and when asked why this episode was different he was unable to elaborate. He describes recent outburst regarding a piece of paper which she "ripped up". Patient states his mood has been "good" although denies having paranoid ideation was paranoid of hand sign writer questioning whether ISA kay was mine. As per chart patient had called the [place] suicide Hotline and social services designee had the impression the patient was psychotic and not suicidal. Mother had stated as per chart that patient felt people are watching him that his parents were holding him back, has been volatile and paranoid and that still having stated that the government is after him and that someone had put Her in the water. Tobacco Use In Past 30 Days: No How Often Do You Have a Drink Containing Alcohol: Monthly or less Hospital Course: Patient is a 28 y/o man, single, domiciled with parents, , unemployed on SSI, with past psychiatric history of anxiety, THC use disorder, with no prior psychiatric admissions, no previous suicide attempts, who was brought in ED under BA by ZOFIA, who were reportedly called to the home by the [place] crisis line because of worsening paranoia and aggressive behavior which patient was admitted to the inpatient psychiatry unit for further evaluation and management. Patient was admitted to a locked, inpatient psychiatric unit. Appropriate precautions were in place throughout patient's hospital stay. Patient was seen and examined on the unit by psychiatry. Psychotropic medications were started and adjusted. There was no evidence of any suicidality or homicidality on the inpatient unit. Patient's mood improved with the benefit of psychopharmacological treatment and had no behavioral disturbance since admission. Patient was noted to have reached stable mood, no longer noted to be disorganized nor having paranoid ideaitons; noted to participate and engage in treatment and interact with staff adequately. Patient noted to be future oriented with plans to continue treatment and outpatient follow-up appointments for continuity of care. Counselor has arranged discharge plan which patient will return to parents residence and continue follow up at the [place]. On the day of discharge: Patient seen and examined; chart reviewed. Case discussed with nurse and counselor. No behavioral issues overnight. On my examination today, the patient denies any suicidal homicidal ideation, intent or plan on direct questioning and contracts for safety. Patient denies any perceptional disturbances and no delusional material verbalized today. Patient denies any side effects from medication and has understanding of medication regimen and education. No physical complaints. Suicide and violence risk assessment on day of discharge both suggest lower imminent risk, and the patient's level of function is adequate for plan level of outpatient care. Patient has maximized benefit from this inpatient psychiatric hospital stay and will be discharged with discharge plan as arranged by counselor. Patient advised to return to psychiatric emergency room for any concerning psychiatric symptoms. Patient agrees with plan. - Discharge Discharge Date: 08/15/18 - Discharge Diagnosis (1) Psychosis Code(s): F29 - Unspecified psychosis not due to a substance or known physiological condition Status: Acute (2) Anxiety disorder, unspecified Code(s): F41.9 - Anxiety disorder, unspecified Status: Acute (3) Cannabis abuse Code(s): F12.10 - Cannabis abuse, uncomplicated Status: Acute Discharge Disposition: Home - Discharge Instructions Discharge Diet: Heart Healthy Diet Activities You Can Perform: Regular- No Restrictions - Discharge Time > 30 minutes Mental Status Examination Appearance: Appropriate, Other (In hospital [facility]) Consciousness: Alert Orientation: x4 Motor Activity: Normal gait Speech: Unremarkable Language: Adequate Fund of Knowledge: Adequate Attention and Concentration: Adequate Memory: Unremarkable Mood: Appropriate Affect: Appropriate, Irritable, Other (Guarded and suspicious) Thought Process & Associations: Intact, Logical, Goal directed, Linear Thought Content: Appropriate Hallucination Type: None Delusion Type: None Suicidal Ideation: No Suicidal Plan: No Suicidal Intention: No Homicidal Ideation: No Homicidal Plan: No Homicidal Intention: No Insight: Fair Judgment: Impulsive Discharge/Advance Care Plan - Results Vital Signs: Last Vital Signs Temp 97.4 F L 08/15/18 05:44 Pulse 55 L 08/15/18 05:44 Resp 18 08/15/18 05:44 BP 117/57 L 08/15/18 05:44 Pulse Ox 100 08/15/18 05:44 Lab Results: Laboratory Results Hemoglobin A1c 5.0 % (4.3-6.0) 08/12/18 08:57 Triglycerides 60 mg/dL (42-150) 08/12/18 08:57 Cholesterol 164 mg/dL (120-200) 08/12/18 08:57 LDL Cholesterol, Calc 82 mg/dL (0-99) 08/12/18 08:57 HDL Cholesterol 70.3 mg/dL (40.0-60.0) H 08/12/18 08:57 Summary of Procedures: none Pending Results: None - Medications Number of antipsychotic medications at discharge: 1 - Discharge Care Plan Goals to Promote Your Health: * To prevent worsening of your condition and complications * To maintain your health at the optimal level Directions to Meet Your Goals: Take your medications as prescribed Follow your dietary instruction Follow activity as directed Keep your appointments as scheduled Take your immunizations and boosters as scheduled If your symptoms worsen call your PCP, if no PCP go to Urgent Care Center or Emergency Room For 05/04 questions related to your inpatient stay or results of tests pending at discharge, please contact Dr. Álvaro Watts MD at Smoking is Dangerous to Your Health. Avoid second hand smoking
--- NOTE | 2018-08-15 14:22 | P.TTN ---
- Patient Problems Problems: 1. Discharge planning 2. Medication compliance 3. Knowledge deficit 4. Lack of coping skills - Progress Toward Goals Provider Present: Dr. Billy Watts Provider Input: Provider reported patient was started on antipsychotic medication that was increased on Wednesday08/12/2018. Provider reported patient has FAHR Disease. Provider reported that patient was psychotic and paranoid upon arrival. Psychiatric Counselors Present: Leigh Bañuelos, [facility] Group Spec/RT/OT/PRUITT Present: Fern Burr, GPS, Jose Capellan, OT Group Spec/RT/OT/PRUITT Input: OT Specialist reported patient shows a "disconnect when speaking to him." Clinical Coordinator: Aletha Flower [facility] - Documentation Teaching Recipient: Patient
== END 2018-08-15 15:45 | disposition home or self-care (01) ==
LOC: NEDAMB 22:01 → NEDA 08-11 14:25 → H270 08-11 17:43 → H260 08-11 18:05
PROVIDERS: ADMIT Student in an Organized Health Care Education/Training Program; ATTEND Student in an Organized Health Care Education/Training Program
DX: F29 Unspecified psychosis not due to a substance or known physiological condition; Z88.2 Allergy status to sulfonamides; F12.10 Cannabis abuse, uncomplicated; G23.8 Other specified degenerative diseases of basal ganglia; F51.05 Insomnia due to other mental disorder; F41.9 Anxiety disorder, unspecified; J30.9 Allergic rhinitis, unspecified